=== PATIENT | male | born 1950 | race African-American/Black ===

== ENCOUNTER → 2017-12-17 | Outpatient (CLI) | payer OTHER | LOC: MRI 08:54 | DX: S43.402A Unspecified sprain of left shoulder joint, initial encounter (principal); M19.012 Primary osteoarthritis, left shoulder; X58.XXXA Exposure to other specified factors, initial encounter; Y93.89 Activity, other specified; Y92.89 Other specified places as the place of occurrence of the external cause; Y99.8 Other external cause status ==